=== PATIENT | female | born 1970 | race Caucasian/White ===

== ENCOUNTER 2021-02-01 10:56 | Day surgery (SDC) | payer OTHER, SELFPAY ==
[2021-02-01] MEDS: Tropicam./Phenyleph. (1/2.5%) 5 ML BTL OS ×3 (11:21→11:33)
[2021-02-01 11:31] VITALS: BP 145/84; PULSE 62; RESP 16; TEMP 36.4; O2SAT 98
--- NOTE | 2021-02-01 11:42 | ANES.PREOP_ITS ---
General Info Date of Service Date Performed: 02/01/21 Height: 5 ft 2.25 in Weight: 156.1 kg Body Mass Index (BMI): 62.4 Surgical Procedure: Operation Date: 02/01/21 14:40 Proposed Procedures Side Surgeon p Cataract Extraction with IOL Implant Left Farooq Omer MD Meds Allergies and Home Medications Allergies Allergy/AdvReac Type Severity Reaction Status Date / Time meperidine [From Demerol] Allergy Mild Itching Unverified 02/01/21 11:25 cat dander Allergy Unverified 02/01/21 11:25 tree and shrub pollen Allergy Unverified 02/01/21 11:25 Home Medication Medication Instructions Recorded brimonidine 1 drp OPHTHALMIC (EYE) BID 01/28/21 cholecalciferol (vitamin D3) 125 mcg PO DAILY 01/28/21 [Vitamin D3] cyanocobalamin-liver extract 1 tab PO DAILY 01/28/21 [Vitamin A92-Ddgje] diphenhydramine-acetaminophen 2 tab PO HS 01/28/21 [Acetaminophen Ex Str Sleep Aid] dorzolamide-timolol 1 drp OPHTHALMIC (EYE) BID 01/28/21 latanoprost 1 drp OPHTHALMIC (EYE) DAILY 01/28/21 levothyroxine [Synthroid] 150 mcg PO DAILY 01/28/21 uieeyiflesxk-tzwhrytc-tginfg 1 tab PO DAILY 01/28/21 [Multivitamin 50 Plus] omeprazole 40 mg PO DAILY 01/28/21 vitamin B complex 1 tab PO DAILY 01/28/21 ibuprofen 200 mg PO Q6H PRN 02/01/21 Current Visit Medications: Current Medications Generic Name Dose Route Start Last Admin Trade Name Freq PRN Reason Stop Dose Admin Acetaminophen 1,000 mg 02/01/21 06:00 Acetaminophen 500 Mg Tab PO Q4H PRN PRN Miscellaneous Medication 0 ml 02/01/21 06:00 Prednisolone 1%, Moxifloxacin 0.5%, Nepafenac 0.1% 5ml Btl OS DIRECTED KIRAN Miscellaneous Medication 0 ml 02/01/21 06:00 02/01/21 11:33 Tropicam./Phenyleph. (1/2.5%) 5 Ml Btl OS 1 drp DIRECTED KIRAN Administration Tetracaine HCl 0 ml 02/01/21 06:00 Tetracaine 0.5% 4 Ml Btl OS DIRECTED [facility] Active Problems Active Problems: Problem Status Onset Code Posterior subcapsular age-related cataract of left eye H25.042 Cortical cataract of left eye H26.9 Nuclear sclerotic cataract of left eye H25.12 Medical History Medical History Acute gastritis Anemia Chorioretinitis Chronic rhinitis Depressive disorder Diverticulitis of large intestine GOMEZ (generalized anxiety disorder) Glaucoma Hypertensive disorder Hypothyroidism Intestinovesical fistula Left lower quadrant abdominal pain Morbid obesity Neck pain Pain in left knee Polycystic ovaries Sinusitis Uterine leiomyoma Vitamin D deficiency Surgical History Surgical History History of bariatric surgery Hx of cholecystectomy Hx of colonoscopy Hx of hysterectomy Hx of laparoscopy Hx of tonsillectomy Tobacco Smoking/Tobacco Use Status: Never Alcohol Alcohol Intake: current Alcohol intake frequency: holidays/special occasions only Substance Use Substance use type: does not use Vital Signs and Lab Results Vital Signs Most Recent Vital Signs in EMR: Most Recent Vital Signs Temp Pulse Resp BP Pulse Ox 36.4 C L 62 16 145/84 H 98 02/01/21 11:31 02/01/21 11:31 02/01/21 11:31 02/01/21 11:31 02/01/21 11:31 Lab Results Blood Type / Crossmatch: No Data to Display Complete Blood Count: No Data to Display Complete Metabolic Panel: No Data to Display Liver Function Panel: No Data to Display Coagulation Panel: No Data to Display Cardiac Panel: No Data to Display Arterial Blood Gas: No Data to Display Venous Blood Gas: No Data to Display Pancreas Panel: No Data to Display Thyroid Panel: No Data to Display Infectious Disease: No Data to Display Blood Cultures: No Data to Display Toxicology Panel: No Data to Display Panel: No Data to Display Anesthesia Assessment and Plan Anesthesia History Personal History: No History of Anesthesia Complications Family History: No Family History of Anesthesia Complications Exercise Tolerance Exercise Tolerance: Metabolic Equivalents>4 Cardiac & Pulmonary Exam Cardiac Exam: Normal S1/S2 Heart Sounds Pulmonary Exam: Clear Bilateral Breath Sounds Airway Exam Known Difficult Airway: No Mallampati Class: 2 Mouth Opening: Normal (> 3cm) Thyromental Distance: Greater than 3 cm Neck Range of Motion: Full ROM Neck Circumference: Thick Teeth Condition: Normal Dentition ASA Classification ASA Score: ASA 3 Emergency Case?: No NPO Status NPO Status: NPO Clears >2 hours, Solids >8 hours Status Status: Not Per Patient Anesthesia Plan Resuscitation Status: Full Code Anesthesia Technique: MAC Anesthesia Airway Planned: Natural Airway Monitors Used: Standard Monitors
[2021-02-01 11:50] VITALS: BMI 62.4
[2021-02-01] MEDS: Lidocaine 2% Jelly 6 ML SYR (11:56)
[2021-02-01] MEDS: Povidone-Iodine Ophth 30 ML BTL (11:56)
[2021-02-01] MEDS: Tetracaine 0.5% 4 ML BTL OS (11:56)
[2021-02-01] MEDS: Balanced Salt Soln.-PLUS 500 ML BAG (12:00)
[2021-02-01] MEDS: Duovisc Viscoelastic System EACH 1 EACH (12:01)
[2021-02-01] MEDS: Lidocaine 1% Pres-Free 5 ML VIAL (12:01)
--- NOTE | 2021-02-01 12:33 | W.PM.DSUDISC ---
Discharge Plan Disposition Patient Disposition: HOME Condition: Good Discharge Details Attending Provider: Farooq Omer Primary Care Provider: Cecelia Ren Home Meds and New Rx's Prescriptions: No Action latanoprost 0.005 % Drops 1 drp ophthalmic (eye) DAILY RF: 0 levothyroxine [Synthroid] 150 mcg Tablet 150 mcg PO DAILY RF: 0 vitamin B complex Tablet 1 tab PO DAILY RF: 0 dorzolamide-timolol 22.3-6.8 mg/mL Drops 1 drp ophthalmic (eye) BID RF: 0 diphenhydramine-acetaminophen [Acetaminophen Ex Str Sleep Aid] 25-500 mg Tablet 2 tab PO HS RF: 0 brimonidine 0.15 % Drops 1 drp ophthalmic (eye) BID RF: 0 Multivitamin 50 Plus Tablet 1 tab PO DAILY RF: 0 Vitamin D27-Lxghr Tablet 1 tab PO DAILY RF: 0 omeprazole 20 mg Tablet,Delayed Release (Dr/Ec) 40 mg PO DAILY RF: 0 cholecalciferol (vitamin D3) [Vitamin D3] 125 mcg (5,000 unit) Tablet 125 mcg PO DAILY RF: 0 ibuprofen 200 mg Tablet 200 mg PO Q6H PRNRF: 0 Discharge Instructions Stand Alone Forms: Post-op Topical CataractArleen (DSU) Discharge Orders Discharge Orders: Discharge Order (Routine); Ordered 02/01/21 Ordered By: Farooq Omer DS: Diagnosis Discharge Diagnosis (1) Posterior subcapsular age-related cataract of left eye: Status: Resolved (2) Cortical cataract of left eye: Status: Resolved (3) Nuclear sclerotic cataract of left eye: Status: Resolved
--- NOTE | 2021-02-01 12:34 | ROE_ITS ---
Date of service: 02/01/21 Time of Service: 12:34 Operative Note Operative Note DATE OF PROCEDURE: 02/01/21 PRE-OP DIAGNOSIS: Nuclear/cortical/posterior subcapsular cataract, left eye Retinitis pigmentosa, left eye POST-OP DIAGNOSIS: same PROCEDURE: Cataract extraction using phacoemulsification with intraocular lens implant, left eye SURGEON: Farooq Omer ANESTHESIA TYPE: Local By Surgeon and MAC Refer to Anesthesia Record PATHOLOGY: none sent COMPLICATIONS: None Patient was transported to: same day Patient's condition: stable Implants: [employer] / [employer] Tecnis [id number] Indications: Progressive decreased vision due to cataract, left eye, with poor red reflex Procedure Description: CATARACT SURGERY OPERATIVE REPORT PREOPERATIVE DIAGNOSIS: 1. Nuclear/cortical/posterior subcapsular cataract, left eye 2. Retinitis pigmentosa, left eye POSTOPERATIVE DIAGNOSIS: Same OPERATION: 1. Cataract extraction using phacoemulsification with posterior chamber intraocular lens implant, left eye. IOL: IOL Engineered Wood Designer/Model: Coleman [employer] Coleman / KATTY Tecnis [id number] IOL Power: + 28.5 diopters IOL Serial Number: [id number] Optic Diameter: 6.0 mm Haptic/Overall Diameter: 13.0 mm PHACO INFO: Jacky Centurion Vision System with OZil and Active Fluidics Cumulative Dispersed Energy (CDE): 3.12 seconds SURGEON: Farooq Omer MD, MAURICIO ANESTHESIA: Monitored A [facility] (MAC), with local sub-tenon's anesthetic infiltration COMPLICATIONS: None SPECIMENS: None INDICATIONS FOR PROCEDURE: The patient is a 50-year-old lady with history of retinitis pigmentosa who has developed a mild nuclear and cortical cataract of the left eye with a significant posterior subcapsular cataract. The option of cataract surgery was offered to the patient and she wished to proceed. PROCEDURE: The correct surgical eye was identified and marked as the left eye and the pupil was dilated in the preoperative area using mydriatics and cycloplegics. The dilated pupil size was 8.0 mm. She elected to proceed without oral sedation.. The patient was brought to the operating room where cardiopulmonary monitoring was instituted and surgical time-out was performed, confirming the correct operative eye and IOL power. Topical anesthesia was administered and ophthalmic povidone-iodine 5% was instilled into the conjunctival fornices. Lidocaine gel was applied to the cornea and the usman-ocular area was prepped with Betadine 10% solution and draped in the usual sterile fashion for intraocular surgery, including an aperture drape. A Tegaderm transparent film dressing was cut in half and used to cover the lashes and lid margins. Care was taken to sequester the lashes and lid margins under the Tegaderm dressing. A lid speculum was placed between the lids of the operative eye and the Kelsey-Ayde operating microscope was maneuvered into position. Shannon scissors were then used to make a conjunctival buttonhole approximately 6mm posterior to the limbus in the inferonasal quadrant. Blunt dissection was carried out to expose bare sclera, and a blunt-tipped sub-tenon?s anesthesia cannula was introduced and passed posteriorly along the globe where non- preserved plain lidocaine was injected into posterior sub-Tenon?s space. A sideport knife was used to make a paracentesis port superiorly/superiortemporally. Intraocular phenylephrine/lidocaine was injected int the anterior chamber.. Air was then injected into the anterior chamber, followed by Vision Blue, which was painted over the anterior capsule and then irrigated out using BSS. The anterior chamber was filled with viscoelastic. A 2.4mm keratome knife was used to create a half-thickness groove at the limbus and then to construct a three-plane near-clear corneal tunnel extending 2.0mm into clear cornea at the 3:00 position. A flap was raised on the anterior capsule and capsulorhexis forceps were used to complete a continuous curvilinear capsulorhexis of 5.75 mm. Mild to moderate zonular laxity was noted with a very thin anterior capsule. Balanced salt solution was then used to perform cortical cleaving hydrodissection and nuclear hydrodelineation until the lens could be freely rotated within the capsular bag. The lens nucleus was then disassembled and removed within the capsular bag and iris plane using phacoemulsification. Residual cortical material was removed using the 45-degree angled silicone I/A tip with 0.3mm port. The posterior capsule was carefully polished to remove as much residual lens epithelial cells as safely possible. A significant amount of posterior capsule polishing was performed, there was some residual posterior subcapsular plaque which could not be safely removed. The capsular bag was then inflated and the anterior chamber deepened with viscoelastic. The lens implant described above was inserted into the capsular bag using the KATTY [place] Injector. A Kuglen hook was used to dial the IOL into position. Residual viscoelastic was then removed first from posterior to the IOL, then from the anterior chamber using the I/A handpiece. The lens implant was noted to center nicely within the capsular bag. The incisions were stromally hydrated, and the anterior chamber was reformed using BSS. Then 0.5cc of moxifloxacin 1.0mg/ml were injected into the capsular bag and anterior chamber. The incisions were checked with a Weck spear and found to be secure. Several drops of ophthalmic povidone-iodine 5% were then applied to the eye followed by two drops of Imprimis combination prednisolone/moxifloxacin/nepafenac solution. The drapes were removed and a clear plastic protective eye shield was placed over the eye. The patient was then returned to Same Day Surgery in stable condition.
[2021-02-01 12:35] VITALS: BP 132/77; PULSE 67; RESP 16; TEMP 36.6; O2SAT 97
--- NOTE | 2021-02-01 12:51 | W.ANESPOSTOP ---
Postoperative Evaluation Date, Time and Location Date Performed: 02/01/21 Time Performed: 12:51 Patient Location: Day Surgery Unit Vital Signs Most Recent Imported Vital Signs: Most Recent Vital Signs Temp Pulse Resp BP Pulse Ox 36.6 C 67 16 132/77 97 02/01/21 12:35 02/01/21 12:35 02/01/21 12:35 02/01/21 12:35 02/01/21 12:35 Pain Score Most Recent Pain Score: Most Recent Pain Score Pain Level 0 02/01/21 12:35 Assessment Mental Status: Awake (Alert & Oriented to Patient Baseline) Airway and Respiratory Function: Patent airway with normal (patient baseline) respiratory exam Cardiovascular Function: Hemodynamically Stable Hydration Status: Adequately Hydrated Nausea & Vomiting: No Nausea or Vomiting Pain: Pt. Denies Any Pain Peripheral Nerve Block: Patient did not receive a nerve block
--- NOTE | 2021-02-15 09:18 | W.ANESPRE ---
General Info Height: 5 ft 2.25 in Weight: 156.1 kg Body Mass Index (BMI): 62.4 Surgical Procedure: Operation Date: 02/01/21 14:40 Proposed Procedures Side Surgeon p Cataract Extraction with IOL Implant Left Farooq Omer MD Actual Procedures Side Surgeon p Cataract Extraction with IOL Implant Left Farooq Omer MD Pre-Op Diagnosis Post-Op Diagnosis CATARACT OF LEFT EYE CATARACT OF LEFT EYE Meds Allergies and Home Medications Allergies Allergy/AdvReac Type Severity Reaction Status Date / Time meperidine [From Demerol] Allergy Mild Itching Unverified 02/15/21 09:08 cat dander Allergy Unverified 02/15/21 09:08 tree and shrub pollen Allergy Unverified 02/15/21 09:08 Home Medication Medication Instructions Recorded brimonidine 1 drp OPHTHALMIC (EYE) BID 01/28/21 cholecalciferol (vitamin D3) 125 mcg PO DAILY 01/28/21 [Vitamin D3] cyanocobalamin-liver extract 1 tab PO DAILY 01/28/21 [Vitamin I79-Fpbkt] diphenhydramine-acetaminophen 2 tab PO HS 01/28/21 [Acetaminophen Ex Str Sleep Aid] dorzolamide-timolol 1 drp OPHTHALMIC (EYE) BID 01/28/21 latanoprost 1 drp OPHTHALMIC (EYE) DAILY 01/28/21 levothyroxine [Synthroid] 150 mcg PO DAILY 01/28/21 clmizocwcygc-yajvvyqv-ietszy 1 tab PO DAILY 01/28/21 [Multivitamin 50 Plus] omeprazole 40 mg PO DAILY 01/28/21 vitamin B complex 1 tab PO DAILY 01/28/21 ibuprofen 200 mg PO Q6H PRN 02/01/21 vit D3-folic artx-K4-S5-B12 1 tab PO HS 02/15/21 PFSH Active Problems Active Problems: Problem Status Onset Code Nuclear sclerotic cataract of left eye H25.12 Cortical cataract of left eye H26.9 Posterior subcapsular age-related cataract of left eye H25.042 Retinitis pigmentosa of left eye H35.52 Retinitis pigmentosa of right eye H35.52 Medical History Medical History Acute gastritis Anemia Chorioretinitis Chronic rhinitis Depressive disorder Diverticulitis of large intestine GOMEZ (generalized anxiety disorder) Glaucoma Hypertensive disorder Hypothyroidism Intestinovesical fistula Left lower quadrant abdominal pain Morbid obesity Neck pain Pain in left knee Polycystic ovaries Sinusitis Uterine leiomyoma Vitamin D deficiency Surgical History Surgical History (Updated 02/15/21 @ 09:08 by Oswaldo Irvin) History of appendectomy History of bariatric surgery Hx of cholecystectomy Hx of colonoscopy Hx of hysterectomy Hx of laparoscopy Hx of tonsillectomy Tobacco Smoking/Tobacco Use Status: Never Alcohol Alcohol Intake: current Alcohol intake frequency: holidays/special occasions only Substance Use Substance use type: does not use Vital Signs and Lab Results Vital Signs Most Recent Vital Signs in EMR: Most Recent Vital Signs Temp Pulse Resp BP Pulse Ox 36.6 C 67 16 132/77 97 02/01/21 12:35 02/01/21 12:35 02/01/21 12:35 02/01/21 12:35 02/01/21 12:35 Lab Results Blood Type / Crossmatch: No Data to Display Complete Blood Count: No Data to Display Complete Metabolic Panel: No Data to Display Liver Function Panel: No Data to Display Coagulation Panel: No Data to Display Cardiac Panel: No Data to Display Arterial Blood Gas: No Data to Display Venous Blood Gas: No Data to Display Pancreas Panel: No Data to Display Thyroid Panel: No Data to Display Infectious Disease: No Data to Display Blood Cultures: No Data to Display Toxicology Panel: No Data to Display Panel: No Data to Display Anesthesia Assessment and Plan Anesthesia History Personal History: No History of Anesthesia Complications Family History: No Family History of Anesthesia Complications Exercise Tolerance Exercise Tolerance: Metabolic Equivalents>4 Pertinent Negatives Pertinent Negatives: No Symptoms of GERD, No Major Cardiovascular Symptoms or Complaints, No Major Pulmonary Symptoms or Complaints and No History of CVA/TIA Cardiac & Pulmonary Exam Cardiac Exam: Normal S1/S2 Heart Sounds Pulmonary Exam: Clear Bilateral Breath Sounds Airway Exam Known Difficult Airway: No Mallampati Class: 2 Mouth Opening: Normal (> 3cm) Thyromental Distance: Greater than 3 cm Neck Range of Motion: Full ROM Neck Circumference: Thick Teeth Condition: Normal Dentition ASA Classification ASA Score: ASA 3 NPO Status NPO Status: NPO Clears >2 hours, Solids >8 hours Status Status: Not Per Patient Anesthesia Plan Resuscitation Status: Full Code Anesthesia Technique: MAC Anesthesia Airway Planned: Natural Airway Monitors Used: Standard Monitors
== END 2021-02-01 13:00 | disposition home or self-care (01) ==
PROVIDERS: PCP Internal Medicine; Visit Provider Ophthalmology
PROC: (CPT 66984; principal; 2021-02-01 14:30)
DX: H25.042 Posterior subcapsular polar age-related cataract, left eye (principal)
CPT/HCPCS: 66984; V2632

== ENCOUNTER 2021-02-15 08:51 | Day surgery (SDC) | payer OTHER, SELFPAY ==
[2021-02-15 09:13] VITALS: BP 143/93; PULSE 59; RESP 16; TEMP 36.4; O2SAT 98
--- NOTE | 2021-02-15 09:23 | W.ANESPRE ---
General Info Date of Service Date Performed: 02/15/21 Height: 5 ft 2.25 in Weight: 157.5 kg Body Mass Index (BMI): 63.0 Surgical Procedure: Operation Date: 02/15/21 11:40 Proposed Procedures Side Surgeon p Cataract Extraction with IOL Implant Right Farooq Omer MD Meds Allergies and Home Medications Allergies Allergy/AdvReac Type Severity Reaction Status Date / Time meperidine [From Demerol] Allergy Mild Itching Unverified 02/15/21 09:08 cat dander Allergy Unverified 02/15/21 09:08 tree and shrub pollen Allergy Unverified 02/15/21 09:08 Home Medication Medication Instructions Recorded brimonidine 1 drp OPHTHALMIC (EYE) BID 01/28/21 cholecalciferol (vitamin D3) 125 mcg PO DAILY 01/28/21 [Vitamin D3] cyanocobalamin-liver extract 1 tab PO DAILY 01/28/21 [Vitamin J43-Kbezp] diphenhydramine-acetaminophen 2 tab PO HS 01/28/21 [Acetaminophen Ex Str Sleep Aid] dorzolamide-timolol 1 drp OPHTHALMIC (EYE) BID 01/28/21 latanoprost 1 drp OPHTHALMIC (EYE) DAILY 01/28/21 levothyroxine [Synthroid] 150 mcg PO DAILY 01/28/21 lqxrrxavaixd-zgwzunfo-endxzo 1 tab PO DAILY 01/28/21 [Multivitamin 50 Plus] omeprazole 40 mg PO DAILY 01/28/21 vitamin B complex 1 tab PO DAILY 01/28/21 ibuprofen 200 mg PO Q6H PRN 02/01/21 vit D3-folic luav-J7-B2-B12 1 tab PO HS 02/15/21 Current Visit Medications: Current Medications Generic Name Dose Route Start Last Admin Trade Name Freq PRN Reason Stop Dose Admin Acetaminophen 1,000 mg 02/15/21 06:00 Acetaminophen 500 Mg Tab PO Q4H PRN PRN Miscellaneous Medication 0 ml 02/15/21 06:00 Prednisolone 1%, Moxifloxacin 0.5%, Nepafenac 0.1% 5ml Btl OD DIRECTED [facility] Miscellaneous Medication 0 ml 02/15/21 06:00 Tropicam./Phenyleph. (1/2.5%) 5 Ml Btl OD DIRECTED [facility] Tetracaine HCl 0 ml 02/15/21 06:00 Tetracaine 0.5% 4 Ml Btl OD DIRECTED [facility] Active Problems Active Problems: Problem Status Onset Code Nuclear sclerotic cataract of left eye H25.12 Cortical cataract of left eye H26.9 Posterior subcapsular age-related cataract of left eye H25.042 Retinitis pigmentosa of left eye H35.52 Retinitis pigmentosa of right eye H35.52 Medical History Medical History Acute gastritis Anemia Chorioretinitis Chronic rhinitis Depressive disorder Diverticulitis of large intestine GOMEZ (generalized anxiety disorder) Glaucoma Hypertensive disorder Hypothyroidism Intestinovesical fistula Left lower quadrant abdominal pain Morbid obesity Neck pain Pain in left knee Polycystic ovaries Sinusitis Uterine leiomyoma Vitamin D deficiency Surgical History Surgical History (Updated 02/15/21 @ 09:08 by Oswaldo Irvin) History of appendectomy History of bariatric surgery Hx of cholecystectomy Hx of colonoscopy Hx of hysterectomy Hx of laparoscopy Hx of tonsillectomy Tobacco Smoking/Tobacco Use Status: Never Alcohol Alcohol Intake: current Alcohol intake frequency: holidays/special occasions only Substance Use Substance use type: does not use Vital Signs and Lab Results Vital Signs Most Recent Vital Signs in EMR: Most Recent Vital Signs Temp Pulse Resp BP Pulse Ox 36.4 C L 59 L 16 143/93 H 98 02/15/21 09:13 02/15/21 09:13 02/15/21 09:13 02/15/21 09:13 02/15/21 09:13 Lab Results Blood Type / Crossmatch: No Data to Display Complete Blood Count: No Data to Display Complete Metabolic Panel: No Data to Display Liver Function Panel: No Data to Display Coagulation Panel: No Data to Display Cardiac Panel: No Data to Display Arterial Blood Gas: No Data to Display Venous Blood Gas: No Data to Display Pancreas Panel: No Data to Display Thyroid Panel: No Data to Display Infectious Disease: No Data to Display Blood Cultures: No Data to Display Toxicology Panel: No Data to Display Panel: No Data to Display Anesthesia Assessment and Plan Anesthesia History Personal History: No History of Anesthesia Complications Family History: No Family History of Anesthesia Complications Exercise Tolerance Exercise Tolerance: Metabolic Equivalents>4 Pertinent Negatives Pertinent Negatives: No Symptoms of GERD, No Major Cardiovascular Symptoms or Complaints, No Major Pulmonary Symptoms or Complaints and No History of CVA/TIA Cardiac & Pulmonary Exam Cardiac Exam: Normal S1/S2 Heart Sounds Pulmonary Exam: Clear Bilateral Breath Sounds Airway Exam Known Difficult Airway: No Mallampati Class: 2 Mouth Opening: Normal (> 3cm) Thyromental Distance: Greater than 3 cm Neck Range of Motion: Full ROM Neck Circumference: Thick Teeth Condition: Normal Dentition ASA Classification ASA Score: ASA 3 Emergency Case?: No NPO Status NPO Status: NPO Clears >2 hours, Solids >8 hours Status Status: Not Per Patient Anesthesia Plan Resuscitation Status: Full Code Anesthesia Technique: MAC Anesthesia (No MKO) Airway Planned: Natural Airway Monitors Used: Standard Monitors
[2021-02-15] MEDS: Tropicam./Phenyleph. (1/2.5%) 5 ML BTL OD ×3 (09:49→09:59)
[2021-02-15 10:14] VITALS: BMI 63.0
--- NOTE | 2021-02-15 11:34 | W.ANESPOSTOP ---
Postoperative Evaluation Date, Time and Location Date Performed: 02/15/21 Time Performed: 12:05 Patient Location: Day Surgery Unit Vital Signs Most Recent Imported Vital Signs: Most Recent Vital Signs Temp Pulse Resp BP Pulse Ox 36.4 C L 59 L 16 143/93 H 98 02/15/21 09:13 02/15/21 09:13 02/15/21 09:13 02/15/21 09:13 02/15/21 09:13 Most Recent Manually Entered Vital Signs: Adult Blood Pressure: 139/83 Heart Rate: 61 Respirations: 16 Oxygen Saturation (%): 100 Temperature (C): 36 C Pain Score (0-10 Scale): 0 Pain Score Most Recent Pain Score: Most Recent Pain Score Pain Level 0 02/15/21 09:13 Assessment Mental Status: Awake (Alert & Oriented to Patient Baseline) Airway and Respiratory Function: Patent airway with normal (patient baseline) respiratory exam Cardiovascular Function: Hemodynamically Stable Hydration Status: Adequately Hydrated Nausea & Vomiting: No Nausea or Vomiting Pain: Pt. Denies Any Pain Peripheral Nerve Block: Other (Local by Dr. Omer)
[2021-02-15] MEDS: Balanced Salt Soln.-PLUS 500 ML BAG (11:38)
[2021-02-15] MEDS: Tetracaine 0.5% 4 ML BTL OD (11:38)
[2021-02-15] MEDS: Lidocaine 1% Pres-Free 5 ML VIAL (11:39)
[2021-02-15] MEDS: Duovisc Viscoelastic System EACH 1 EACH (11:39)
[2021-02-15] MEDS: Lidocaine 2% Jelly 6 ML SYR (11:40)
[2021-02-15] MEDS: Povidone-Iodine Ophth 30 ML BTL (11:43)
--- NOTE | 2021-02-15 12:04 | W.PM.DSUDISC ---
Discharge Plan Disposition Patient Disposition: HOME Condition: Good Discharge Details Attending Provider: Farooq Omer Primary Care Provider: Cecelia Ren Home Meds and New Rx's Prescriptions: No Action vit D3-folic lajr-T6-Q0-B12 2,000-800-0.32 unit-mcg-mg Tablet 1 tab PO HS RF: 0 latanoprost 0.005 % Drops 1 drp ophthalmic (eye) DAILY RF: 0 levothyroxine [Synthroid] 150 mcg Tablet 150 mcg PO DAILY RF: 0 vitamin B complex Tablet 1 tab PO DAILY RF: 0 dorzolamide-timolol 22.3-6.8 mg/mL Drops 1 drp ophthalmic (eye) BID RF: 0 diphenhydramine-acetaminophen [Acetaminophen Ex Str Sleep Aid] 25-500 mg Tablet 2 tab PO HS RF: 0 brimonidine 0.15 % Drops 1 drp ophthalmic (eye) BID RF: 0 Multivitamin 50 Plus Tablet 1 tab PO DAILY RF: 0 Vitamin I35-Prbeg Tablet 1 tab PO DAILY RF: 0 omeprazole 20 mg Tablet,Delayed Release (Dr/Ec) 40 mg PO DAILY RF: 0 cholecalciferol (vitamin D3) [Vitamin D3] 125 mcg (5,000 unit) Tablet 125 mcg PO DAILY RF: 0 ibuprofen 200 mg Tablet 200 mg PO Q6H PRNRF: 0 Discharge Instructions Stand Alone Forms: Post-op Topical Cataract, Arleen Ganey (DSU) Discharge Orders Discharge Orders: Discharge Order (Routine); Ordered 02/15/21 Ordered By: Farooq Omer DS: Diagnosis Discharge Diagnosis (1) Posterior subcapsular age-related cataract, right eye: Status: Resolved (2) Nuclear sclerotic cataract of right eye: Status: Resolved (3) Cortical cataract of right eye: Status: Resolved
[2021-02-15 12:05] VITALS: BP 139/83; PULSE 61; RESP 16; TEMP 36; TEMPC 36; O2SAT 100
--- NOTE | 2021-02-15 12:05 | ROE_ITS ---
Date of service: 02/15/21 Time of Service: 12:05 Operative Note Operative Note DATE OF PROCEDURE: 01/25/21 PRE-OP DIAGNOSIS: Nuclear/cortical/posterior subcapsular cataract, right eye Retinitis pigmentosa, right eye POST-OP DIAGNOSIS: same PROCEDURE: Cataract extraction using phacoemulsification with intraocular lens implant, right eye SURGEON: Farooq Omer ANESTHESIA TYPE: Local By Surgeon and MAC Refer to Anesthesia Record ESTIMATED BLOOD LOSS: 0 PATHOLOGY: none sent COMPLICATIONS: None Patient was transported to: same day Patient's condition: stable Implants: [employer] Coleman/KATTY [employer] [id number] Indications: Progressive visual loss due to cataract, right eye Procedure Description: CATARACT SURGERY OPERATIVE REPORT PREOPERATIVE DIAGNOSIS: 1. Nuclear/cortical/posterior subcapsular cataract, right eye 2. Retinitis pigmentosa, right eye POSTOPERATIVE DIAGNOSIS: Same OPERATION: 1. Cataract extraction using phacoemulsification with posterior chamber intraocular lens implant, right eye. IOL: IOL Sap Basis Consultant/Model: [employer] Coleman / KATTY [employer]ecnis [id number] IOL Power: + 27.5 diopters IOL Serial Number: [id number] Optic Diameter: 6.0mm Haptic/Overall Diameter: 13.0mm PHACO INFO: Jacky [employer]ion Vision System with OZil and Active Fluidics Cumulative Dispersed Energy (CDE): 2.87 seconds SURGEON: Farooq Omer MD, MAURICIO ANESTHESIA: Monitored Anesthesia Care (MAC), with local sub-tenon's anesthetic infiltration COMPLICATIONS: None SPECIMENS: None INDICATIONS FOR PROCEDURE: The patient is a 50-year-old lady with history of diminished visual acuity in both eyes secondary to retinitis pigmentosa. She has also developed significant bilateral posterior subcapsular cataract with milder nuclear and cortical cataract. She has already undergone cataract surgery in the left eye with a postoperative refractive target of -2.75 diopters. She is doing well postoperatively in the left eye. She now presents for cataract surgery in the right eye, again with postoperative refractive target of -2.75. PROCEDURE: The correct surgical eye was identified and marked as the right eye and the pupil was dilated in the preoperative area using mydriatics and cycloplegics. The dilated pupil size was 7.5 mm. She elected to proceed without oral sedation. The patient was brought to the operating room where cardiopulmonary monitoring was instituted and surgical time-out was performed, confirming the correct operative eye and IOL power. Topical anesthesia was administered and ophthalmic povidone-iodine 5% was instilled into the conjunctival fornices. Lidocaine gel was applied to the cornea and the usman-ocular area was prepped with Betadine 10% solution and draped in the usual sterile fashion for intraocular surgery, including an aperture drape. A Tegaderm transparent film dressing was cut in half and used to cover the lashes and lid margins. Care was taken to sequester the lashes and lid margins under the Tegaderm dressing. A lid speculum was placed between the lids of the operative eye and the Kelsey-Ayde operating microscope was maneuvered into position. Shannon scissors were then used to make a conjunctival buttonhole approximately 6mm posterior to the limbus in the inferonasal quadrant. Blunt dissection was carried out to expose bare sclera, and a blunt-tipped sub-tenon?s anesthesia cannula was introduced and passed posteriorly along the globe where non- preserved plain lidocaine was injected into posterior sub-Tenon?s space. A sideport knife was used to make a paracentesis port inferotemporally. Intraocular phenylephrine/lidocaine was injected into the anterior chamber. The anterior chamber was filled with viscoelastic. A 2.4mm keratome knife was used to create a half-thickness groove at the limbus and then to construct a three- plane near-clear corneal tunnel extending 2.0mm into clear cornea superiortemporally. A flap was raised on the anterior capsule and capsulorhexis forceps were used to complete a continuous curvilinear capsulorhexis of 5.5 mm. The capsule was noted to be extremely thin with moderate zonular laxity. Balanced salt solution was then used to perform cortical cleaving hydrodissection and nuclear hydrodelineation until the lens could be freely rotated within the capsular bag. The lens nucleus was then disassembled and removed within the capsular bag and iris plane using phacoemulsification. Residual cortical material was removed using the I/A handpiece. The posterior capsule was carefully polished to remove as much residual lens epithelial cells as safely possible. There was a slight amount of residual posterior subcapsular plaque that could not be safely removed despite extensive polishing. The capsular bag was then inflated and the anterior chamber deepened with viscoelastic. The lens implant described above was inserted into the capsular bag using the KATTY [place] Injector. A Kuglen hook was used to dial the IOL into position. Residual viscoelastic was then removed first from posterior to the IOL, then from the anterior chamber using the I/A handpiece. The lens implant was noted to center nicely within the capsular bag. The incisions were stromally hydrated, and the anterior chamber was reformed using BSS. Then 0.5cc of moxifloxacin 1.0mg/ml were injected into the capsular bag and anterior chamber. The incisions were checked with a Weck spear and found to be secure. Several drops of ophthalmic povidone-iodine 5% were then applied to the eye followed by two drops of Imprimis combination prednisolone/moxifloxacin/nepafenac solution. The drapes were removed and a clear plastic protective eye shield was placed over the eye. The patient was then returned to [facility] in stable condition.
== END 2021-02-15 12:20 | disposition home or self-care (01) ==
PROVIDERS: PCP Internal Medicine; Visit Provider Ophthalmology
PROC: (CPT 66984; principal; 2021-02-15 11:30)
DX: H25.041 Posterior subcapsular polar age-related cataract, right eye (principal)
CPT/HCPCS: 66984; V2632